=== PATIENT | male | born 1970 | race Caucasian/White ===

== ENCOUNTER 2018-01-07 13:03 | Emergency (ER) | payer BC, OTHER ==
[2018-01-07 13:17] VITALS: BP 147/104
--- NOTE | 2018-01-07 13:39 | ER Document Report ---
HPI - HPI Pain Level: 5 Context: Patient is a 47-year-old male who presents emergency department the chief complaint of left foot and ankle pain. Patient states that a week ago he rolled his ankle is been walking ever since with pain. States his been taking Tylenol Motrin for it. Denies being evaluated by primary care provider for this yet. Denies any numbness or tingling, fever or chills.. Patient did go to urgent care prior to arrival received Toradol IM. - MUSCULOSKELETAL Musculoskeletal: REPORTS: Extremity pain Past Medical History - Social History Smoking Status: Never Smoker Chew tobacco use (# tins/day): No Frequency of alcohol use: None Drug Abuse: None Family History: Reviewed & Not Pertinent Patient has suicidal ideation: No Patient has homicidal ideation: No Renal/ Medical History: Denies: Hx Peritoneal Dialysis Vertical Provider Document - CONSTITUTIONAL Agree With Documented VS: Yes Notes: PHYSICAL EXAM GENERAL: Alert, interacts well. EXTREMITIES: Moves all 4 extremities spontaneously. minimal soft tissue swelling without dependent edema dorsalis pedis pulses 2/4 bilaterally. No cyanosis. lateral ankle with tenderness no deformity NEUROLOGICAL: Alert and oriented x4. Normal speech. PSYCH: Normal affect, normal mood. SKIN: Warm, dry, normal turgor. edema and bruising without focal erythema nontender Course - Re-evaluation Re-evalutation: 01/07/18 14:23 Patient is a 47-year-old male is hemodynamic stable, anxious and afebrile. Presentation is consistent with a left lateral ankle sprain no evidence of a septic joint, gout flare, dislocation, or fracture on exam and imaging. Vitals wnl. At this time, I do not see an indication for labs or further imaging. Will discharge with conservative measures, return precautions, and follow-up recommendations. - Vital Signs Vital signs: Temp Pulse Resp BP Pulse Ox 97.4 F 116 H 18 147/104 H 97 01/07/18 13:15 01/07/18 13:15 01/07/18 13:15 01/07/18 13:15 01/07/18 13:15 - Diagnostic Test Radiology reviewed: Image reviewed, Reports reviewed Discharge - Discharge Clinical Impression: Ankle injury Qualifiers: Encounter type: initial encounter Laterality: left Qualified Code(s): S99.912A - Unspecified injury of left ankle, initial encounter Condition: Good Disposition: HOME, SELF-CARE Instructions: Use of Crutches ([facility]), Ice & Elevation ([facility]), Sprained Ankle ([facility] ) Additional Instructions: Your x-ray does not show any acute fracture today. You likely have a ligamentous strain. You should continue to take anti-inflammatories such as ibuprofen 600 mg every 6 hours. Continue to apply ice to the area is much your able. Please follow-up with your primary care physician if you do not have improving your symptoms in the next 1-2 weeks. Please return immediately if you develop weakness, numbness, spreading redness from the area, or any other symptoms that are concerning to you. Prescriptions: Ibuprofen [Motrin 800 mg Tablet] 800 mg PO Q8H PRN #30 tab PRN Reason: Referrals: EDIE PRATT MD [ACTIVE STAFF] - Follow up in 1 week
--- NOTE | 2018-01-07 14:11 | RADIOLOGY REPORT (SQ) ---
EXAM DESCRIPTION: FOOT LEFT COMPLETE COMPLETED DATE/TIME: 01/07/2018 2:03 pm REASON FOR STUDY: fall COMPARISON: None. NUMBER OF VIEWS: Three views. TECHNIQUE: AP, lateral and oblique radiographic images acquired of the left foot. LIMITATIONS: None. FINDINGS: MINERALIZATION: Normal. BONES: No acute fracture or dislocation. No worrisome bone lesions. JOINTS: No effusions. SOFT TISSUES: Diffuse soft tissue swelling. No foreign body. OTHER: No other significant finding. IMPRESSION: SOFT TISSUE SWELLING WITHOUT FRACTURE OR FOREIGN BODY IDENTIFIED. TECHNICAL DOCUMENTATION: JOB ID: [id number] [employer]- All Rights Reserved Reading location - IP/workstation name: [email or web address]
--- NOTE | 2018-01-07 14:11 | RADIOLOGY REPORT (SQ) ---
EXAM DESCRIPTION: ANKLE LEFT COMPLETE COMPLETED DATE/TIME: 01/07/2018 2:03 pm REASON FOR STUDY: fall COMPARISON: None. NUMBER OF VIEWS: Three views. TECHNIQUE: AP, lateral, and oblique radiographic images acquired of the left ankle. LIMITATIONS: None. FINDINGS: MINERALIZATION: Normal. BONES: No acute fracture or dislocation. No worrisome bone lesions. Calcaneal spurring. JOINTS: No effusions. SOFT TISSUES: No soft tissue swelling. No foreign body. OTHER: No other significant finding. IMPRESSION: NO RADIOGRAPHIC EVIDENCE OF ACUTE INJURY. TECHNICAL DOCUMENTATION: JOB ID: [id number] [employer]- All Rights Reserved Reading location - IP/workstation name: [email or web address]
== END 2018-01-07 14:46 | disposition home or self-care (01) ==
LOC: ER 13:03
DX: S99.912A Unspecified injury of left ankle, initial encounter (principal); M79.672 Pain in left foot; X50.0XXA Overexertion from strenuous movement or load, initial encounter
CPT/HCPCS: 99283; 73610; 73630; L1902